=== PATIENT | male | born 1980 | race American Indian/Alaskan Native ===

== ENCOUNTER 2016-12-21 22:55 | Emergency (ER) | payer OTHER ==
[2016-12-21] MEDS ORDERED: CATAPRES ONE (23:10)
[2016-12-21] MEDS ORDERED: NORCO 5/325 ONE (23:10)
[2016-12-21] MEDS ORDERED: NORCO 5/325 PO ONE (23:13)
[2016-12-21] MEDS ORDERED: CATAPRES PO ONE (23:13)
[2016-12-22] MEDS ORDERED: MOTRIN PO ONE (02:00)
--- NOTE | 2016-12-22 02:01 | Emergency Department Report ---
ED Back Pain/Injury HPI - General Chief Complaint: Back Pain/Injury Stated Complaint: BACKPAIN Time Seen by Provider: 12/22/16 01:58 Source: patient Limitations: No Limitations - History of Present Illness Initial Comments: A 36-year-old -[place] male comes in today for concern of back pain. Patient reports that he lifted a garage overhead door then a truck door the garage door came down on his mid and lower back. Patient denies any loss of consciousness or other reported injuries. It was noted that his blood pressure was elevated in triage to 160/121. Patient reports he does have a past medical history of hypertension but he takes no medications. - Related Data Previous Rx's Medication Instructions Recorded Last Taken Type Acetaminophen/Codeine [Tylenol #3] 1 tab PO Q6H PRN #14 tab 08/25/15 Unknown Rx Cyclobenzaprine [Flexeril] 10 mg PO TID PRN #14 tablet 08/25/15 Unknown Rx Ibuprofen [Motrin] 800 mg PO Q8HR PRN #30 tablet 08/25/15 Unknown Rx Ibuprofen [Motrin 800 MG tab] 800 mg PO Q8HR #30 tablet 12/22/16 Unknown Rx Triamcinolone 0.5% [Kenalog 0.5% 1 applic TP TID #2 tube 12/22/16 Unknown Rx CREAM] Allergies Allergy/AdvReac Type Severity Reaction Status Date / Time No Known Allergies Allergy Unverified 08/25/15 12:19 ED Review of Systems ROS: Stated complaint: BACKPAIN Other details as noted in HPI Constitutional: denies: chills, fever Eyes: denies: eye pain, eye discharge, vision change ENT: denies: ear pain, throat pain Respiratory: denies: cough, shortness of breath, wheezing Cardiovascular: denies: chest pain, palpitations Endocrine: no symptoms reported Gastrointestinal: denies: abdominal pain, nausea, diarrhea Genitourinary: denies: urgency, dysuria Musculoskeletal: back pain Skin: rash. denies: lesions Neurological: denies: headache, weakness, paresthesias ED Past Medical Hx - Past Medical History Previous Medical History?: Yes Hx Hypertension: Yes (No recent Tx) - Surgical History Past Surgical History?: No - Social History Smoking Status: Never Smoker Substance Use Type: Alcohol - Medications Home Medications: Home Medications Medication Instructions Recorded Confirmed Last Taken Type Acetaminophen/Codeine [Tylenol #3] 1 tab PO Q6H PRN #14 tab 08/25/15 Unknown Rx Cyclobenzaprine [Flexeril] 10 mg PO TID PRN #14 tablet 08/25/15 Unknown Rx Ibuprofen [Motrin] 800 mg PO Q8HR PRN #30 tablet 08/25/15 Unknown Rx Ibuprofen [Motrin 800 MG tab] 800 mg PO Q8HR #30 tablet 12/22/16 Unknown Rx Triamcinolone 0.5% [Kenalog 0.5% 1 applic TP TID #2 tube 12/22/16 Unknown Rx CREAM] ED Physical Exam - General Limitations: No Limitations - Head Head exam: Present: atraumatic, normocephalic - Eye Eye exam: Present: normal appearance - ENT ENT exam: Present: mucous membranes moist - Neck Neck exam: Present: normal inspection - Respiratory Respiratory exam: Present: normal lung sounds bilaterally. Absent: respiratory distress - Cardiovascular Cardiovascular Exam: Present: regular rate, normal rhythm. Absent: systolic murmur, diastolic murmur, rubs, gallop - Back Exam Back exam: Present: tenderness (thoracic lumbar tenderness), muscle spasm, paraspinal tenderness - Neurological Exam Neurological exam: Present: alert, oriented X3 - Psychiatric Psychiatric exam: Present: normal affect, normal mood - Skin Skin exam: Present: warm, dry, intact, normal color, rash (hyper pigmented dry scaly rash located at the extensors and around the neck.) ED Course Vital Signs 12/21/16 12/21/16 12/22/16 23:00 23:05 01:59 Temperature 98.4 F Pulse Rate 77 78 Respiratory 18 Rate Blood Pressure 160/121 Blood Pressure 160/121 120/62 [Right] O2 Sat by Pulse 99 Oximetry - Reevaluation(s) Reevaluation #1: 12/22/16 03:06 He reports that he feels much better. He is ready to be discharged ED Medical Decision Making - Radiology Data X-rays are within normal limits. - Medical Decision Making She has been evaluated by this provider in fast track. Discussed patient awaiting for his x-ray results. This provider repeated his blood pressure which was great at 120/62. Discussed the patient I will give him no medication for his elevated blood pressure in triage. Discussed the patient I will discharge him on ibuprofen 800 mg 1 tablet by mouth 3 times a day when necessary for pain. I also discussed with patient that I would discharge him on proximal long cream for his eczema rash. Critical care attestation.: If time is entered above; I have spent that time in minutes in the direct care of this critically ill patient, excluding procedure time. ED Disposition Clinical Impression: Back pain due to injury, Chronic eczema Disposition: DISCHARGED TO HOME OR SELFCARE Is pt being admited?: No Does the pt Need Aspirin: No Condition: Stable Instructions: Eczema (ED), Acute Low Back Pain (ED) Prescriptions: Ibuprofen [Motrin 800 MG tab] 800 mg PO Q8HR #30 tablet Triamcinolone 0.5% [Kenalog 0.5% CREAM] 1 applic TP TID #2 tube Referrals: PRIMARY CARE,MD [Primary Care Provider] - 3-5 Days [facility] [Outside] - 3-5 Days Forms: Work/School Release Form(ED)
--- NOTE | 2016-12-22 02:44 | XRay Report ---
FINAL REPORT EXAM: XR SPINE LUMBOSACRAL 2-3V HISTORY: impact, pain, send for report COMPARISON: None available. FINDINGS: AP lateral views of lumbar spine obtained. Lumbar vertebral body heights and disc heights are preserved. Pedicles are intact. No spondylolisthesis. IMPRESSION: Normal height and alignment of the lumbar spine.
--- NOTE | 2016-12-22 02:45 | XRay Report ---
FINAL REPORT EXAM: XR SPINE THORACIC 3V HISTORY: impact, pain, send for report COMPARISON: None available. FINDINGS: Three views of the thoracic spine obtained. Thoracic vertebral body heights and disc heights are preserved. Pedicles are intact. Normal kyphotic curvature. IMPRESSION: Normal height and alignment of the thoracic spine.
[2016-12-22 04:17] VITALS: BP 126/78
== END 2016-12-22 03:15 | disposition home or self-care (01) ==
LOC: ED 22:55
DX: S39.92XA Unspecified injury of lower back, initial encounter (principal); L30.9 Dermatitis, unspecified; I10 Essential (primary) hypertension; W22.8XXA Striking against or struck by other objects, initial encounter; Y93.9 Activity, unspecified; Y92.9 Unspecified place or not applicable; Y99.9 Unspecified external cause status
CPT/HCPCS: 72072; 72100; 99283

== ENCOUNTER 2020-06-26 11:47 | Emergency (ER) | payer OTHER ==
[2020-06-26 11:55] VITALS: BP 158/106
--- NOTE | 2020-06-26 12:26 | Emergency Department Report ---
ED Back Pain/Injury HPI - General Chief Complaint: Back Pain/Injury Stated Complaint: BACK PAIN Time Seen by Provider: 06/26/20 12:17 Source: patient Limitations: No Limitations - History of Present Illness Initial Comments: Patient is a 39-year-old male presents emergency room with complaints of bilateral middle back pain that began 2 days ago. He denies any fall or injury. 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 He denies any fever, nausea, vomiting, diarrhea, urinary symptoms, pain or swelling testicles, abdominal pain, numbness, weakness, bowel or bladder incontinence. He has a past medical history of hypertension, hyperlipidemia but states he has not taken medications in several months. He states he attempts to eat a low-sodium diet. He states that he also has a history of chronic back pain and previously used to see a spine doctor, he denies any history of spinal fractures or spinal surgeries. - Related Data Previous Rx's Medication Instructions Recorded Last Taken Type Acetaminophen/Codeine [Tylenol #3] 1 tab PO Q6H PRN #14 tab 08/25/15 Unknown Rx Cyclobenzaprine [Flexeril] 10 mg PO TID PRN #14 tablet 08/25/15 Unknown Rx Ibuprofen [Motrin] 800 mg PO Q8HR PRN #30 tablet 08/25/15 Unknown Rx Ibuprofen [Motrin 800 MG tab] 800 mg PO Q8HR #30 tablet 12/22/16 Unknown Rx Triamcinolone 0.5% [Kenalog 0.5% 1 applic TP TID #2 tube 12/22/16 Unknown Rx CREAM] Cyclobenzaprine [Flexeril] 10 mg PO TID PRN #20 tablet 06/30/18 Unknown Rx HYDROcodone/APAP 5-325 [[place] 1 each PO Q6HR PRN #15 tablet 06/30/18 Unknown Rx 5/325] Ibuprofen [Ibuprofen 800] 800 mg PO TID 5 Days #15 tablet 06/30/18 Unknown Rx Menthol/Camphor [[place] 1 applicatio TP BID #8 oint...g. 06/26/20 Unknown Rx Ointment] Naproxen [EC-Naprosyn] 500 mg PO BID PRN #14 06/26/20 Unknown Rx methOCARBAMOL [Robaxin TAB] 500 mg PO BID PRN #14 tab 06/26/20 Unknown Rx Allergies Allergy/AdvReac Type Severity Reaction Status Date / Time No Known Allergies Allergy Verified 06/26/20 11:51 ED Review of Systems ROS: Stated complaint: BACK PAIN Other details as noted in HPI Comment: All other systems reviewed and negative ED Past Medical Hx - Past Medical History Hx Hypertension: Yes (No recent Tx) Additional medical history: CHRONIC BACK PAIN - Surgical History Past Surgical History?: No - Social History Smoking Status: Never Smoker Substance Use Type: Alcohol, Marijuana - Medications Home Medications: Home Medications Medication Instructions Recorded Confirmed Last Taken Type Acetaminophen/Codeine [Tylenol #3] 1 tab PO Q6H PRN #14 tab 08/25/15 Unknown Rx Cyclobenzaprine [Flexeril] 10 mg PO TID PRN #14 tablet 08/25/15 Unknown Rx Ibuprofen [Motrin] 800 mg PO Q8HR PRN #30 tablet 08/25/15 Unknown Rx Ibuprofen [Motrin 800 MG tab] 800 mg PO Q8HR #30 tablet 12/22/16 Unknown Rx Triamcinolone 0.5% [Kenalog 0.5% 1 applic TP TID #2 tube 12/22/16 Unknown Rx CREAM] Cyclobenzaprine [Flexeril] 10 mg PO TID PRN #20 tablet 06/30/18 Unknown Rx HYDROcodone/APAP 5-325 [[place] 1 each PO Q6HR PRN #15 tablet 06/30/18 Unknown Rx 5/325] Ibuprofen [Ibuprofen 800] 800 mg PO TID 5 Days #15 tablet 06/30/18 Unknown Rx Menthol/Camphor [[place] 1 applicatio TP BID #8 oint...g. 06/26/20 Unknown Rx Ointment] Naproxen [EC-Naprosyn] 500 mg PO BID PRN #14 tablet.dr 06/26/20 Unknown Rx methOCARBAMOL [Robaxin TAB] 500 mg PO BID PRN #14 tab 06/26/20 Unknown Rx ED Physical Exam - General Limitations: No Limitations General appearance: alert, in no apparent distress - Head Head exam: Present: atraumatic, normocephalic - Eye Eye exam: Present: normal appearance - ENT ENT exam: Present: mucous membranes moist - Neck Neck exam: Present: normal inspection, full ROM. Absent: tenderness - Respiratory Respiratory exam: Present: normal lung sounds bilaterally. Absent: respiratory distress, wheezes, rales, rhonchi, stridor, chest wall tenderness, accessory muscle use, decreased breath sounds, prolonged expiratory - Cardiovascular Cardiovascular Exam: Present: regular rate, normal rhythm, normal heart sounds. Absent: systolic murmur, diastolic murmur, rubs, gallop - Back Exam Back exam: Present: normal inspection, full ROM, paraspinal tenderness (bilateral T-spine paraspinal muscular ttp, no midline C-spine, T-spine, or L- spine ttp, no step offs, no deformities). Absent: vertebral tenderness - Neurological Exam Neurological exam: Present: alert, oriented X3, CN II-XII intact, normal gait. Absent: motor sensory deficit - Psychiatric Psychiatric exam: Present: normal affect, normal mood - Skin Skin exam: Present: warm, dry, intact ED Course Vital Signs 06/26/20 11:53 Temperature 98.5 F Pulse Rate 82 Respiratory 18 Rate Blood Pressure 158/106 O2 Sat by Pulse 100 Oximetry ED Medical Decision Making - Medical Decision Making Patient is a 39-year-old male presents emergency room with complaints of bilateral middle back pain that began 2 days ago. He denies any fall or injury. 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 He denies any fever, nausea, vomiting, diarrhea, urinary symptoms, pain or swelling testicles, abdominal pain, numbness, weakness, bowel or bladder incontinence. He has a past medical history of hypertension, hyperlipidemia but states he has not taken medications in several months. He states he attempts to eat a low-sodium diet. He states that he also has a history of chronic back pain and previously used to see a spine doctor, he denies any history of spinal fractures or spinal surgeries. Vitals with mildly elevated blood pressure, patient be referred to primary care doctor, discussed low-sodium diet, discussed increasing water intake, discussed 30 to 60 minutes of aerobic exercise, discussed to keep a blood pressure log and take this to the primary care doctor. On exam:bilateral T-spine paraspinal muscular ttp, no midline C-spine, T-spine, or L-spine ttp, no step offs, no deformities. Examination appears consistent with muscle strain. Patient has no red flag warning signs of back pain, no trauma, no unexplained weight loss, no neuro deficits, age is not greater than 50, no fever, no IV drug use, no steroid use, no history of cancer. Patient given prescription for naproxen and Robaxin. Advised patient Please take medication as prescribed. Do not drive or operate machinery while taking muscle relaxer Robaxin. May use ice pack, rest, Epson salt bath. Follow-up with a primary care doctor. Follow-up with orthopedic/spine doctor. Return to emergency room for any new or worsening symptoms. - Differential Diagnosis Muscle strain/spasm, DDD, bulging disc, radiculopathy, arthritis Critical care attestation.: If time is entered above; I have spent that time in minutes in the direct care of this critically ill patient, excluding procedure time. ED Disposition Clinical Impression: Acute thoracic myofascial strain Qualifiers: Encounter type: initial encounter Qualified Code(s): S29.019A - Strain of muscle and tendon of unspecified wall of thorax, initial encounter Disposition: - TO HOME OR SELFCARE Is pt being admited?: No Does the pt Need Aspirin: No Condition: Stable Instructions: Muscle Strain, [id number] Additional Instructions: Please take medication as prescribed. Do not drive or operate machinery while taking muscle relaxer Robaxin. May use ice pack, rest, Epson salt bath. Follow-up with a primary care doctor. Follow-up with orthopedic/spine doctor. Return to emergency room for any new or worsening symptoms. Prescriptions: Naproxen [EC-Naprosyn] 500 mg PO BID PRN #14 tablet.dr SHAW Reason: pain methOCARBAMOL [Robaxin TAB] 500 mg PO BID PRN #14 tab PRN Reason: pain Menthol/Camphor [[place] Ointment] 1 applicatio TP BID #8 oint...g. Referrals: [facility] [Provider Group] - 2-3 Days [facility] [Provider Group] - 2-3 Days TEREZA PULLIAM MD [Staff Physician] - 2-3 Days JOAQUINA HUMPHRIES II, MD [Staff Physician] - 2-3 Days Forms: Work/School Release Form(ED) Time of Disposition: 12:25 Print Language: SAUDI ARABIAN
== END 2020-06-26 13:04 | disposition home or self-care (01) ==
LOC: ED 11:47
DX: S29.012A Strain of muscle and tendon of back wall of thorax, initial encounter (principal); I10 Essential (primary) hypertension; F12.10 Cannabis abuse, uncomplicated; Z79.1 Long term (current) use of non-steroidal anti-inflammatories (NSAID); Z79.899 Other long term (current) drug therapy; X58.XXXA Exposure to other specified factors, initial encounter; Y93.89 Activity, other specified; Y92.89 Other specified places as the place of occurrence of the external cause; Y99.8 Other external cause status
CPT/HCPCS: 99282